=== PATIENT | male | born 1955 | race Caucasian/White ===

== ENCOUNTER → 2017-08-22 | Day surgery (SDC) | payer OTHER ==
[2017-08-20 10:07] VITALS: BMI 26.6
--- NOTE | 2017-08-21 13:12 | HP ---
HISTORY AND PHYSICAL Surgery is scheduled for 08/22/2017. Braxton Montana is a 62-year-old patient seen with progressive right shoulder pain. We discussed treatment options. He elected to proceed with arthroscopy. Consent was obtained. PAST MEDICAL HISTORY: His past medical history is hyperlipidemia, hypertension, gastroesophageal reflux disease. PAST SURGICAL HISTORY: Tonsillectomy. DAILY MEDICATIONS: 1. Atorvastatin. 2. Cardizem. 3. [place]. 4. Prilosec. ALLERGIES: PENICILLIN. SOCIAL HISTORY: Patient currently smokes 1 pack of cigarettes daily. PHYSICAL EXAMINATION: Physical evaluation right shoulder: Flexion 90 degrees, abduction is 30 degrees. External rotation is 10 degrees with pain and weakness. Tenderness along the anterolateral acromion and rotator cuff insertion site. Impingement positive at 70 degrees. Drop-arm sign is positive. Distal neurovascular exam is intact. Radiographs of the right shoulder revealed a type 2 anterior acromion acromioclavicular joint osteoarthritis and cystic changes of the greater tuberosity. A right shoulder MRI revealed a retracted rotator cuff tendon tear. IMPRESSION: 1. Right shoulder impingement with rotator cuff tear. 2. Hypertension. 3. Hyperlipidemia. 4. Tobacco use. PLAN: Right shoulder arthroscopy, subacromial decompression, probable arthroscopic rotator cuff repair, possible Domenica procedure and debridement. MMODL / IJN: [id number] /
[~2017-08-22] MED LIST: DEXAMETHASONE SOD PHOSPHATE 10 MG/ML 1 ML VIAL IV ONE; GLYCOPYRROLATE 0.2 MG/ML 2 ML VIAL ONE; LACTATED RINGERS 1,000 ML IV ONE; LACTATED RINGERS 1,000 ML IV SCH; LIDOCAINE 1% 20 ML VIAL (10MG/ML) FOR IV START INTRADERMA PRN; LIDOCAINE 1% INJ 10MG/ML (20 ML MDV) ONE; LIDOCAINE 2%-EPI 1:100,000 20 ML VIAL ONE; MIDAZOLAM 2 MG/2 ML VIAL IV PRN; MIDAZOLAM 2 MG/2 ML VIAL ONE; NEOSTIGMINE 1 MG/ML 10 ML VIAL ONE; ONDANSETRON ODT 4 MG TAB PO ONE; PROPOFOL 10 MG/ML 20 ML VIAL IV ONE; ROCURONIUM BROMIDE 10 MG/ML 10 ML VIAL IV ONE; ROPIVACAINE 5 MG/ML 30 ML VIAL ONE; SCOPOLAMINE 1.5MG/72HR PATCH TRANSDERM ONE; SUCCINYLCHOLINE CHLORIDE 100 MG/5 ML SYR IV ONE; ceFAZolin IN SWFI 2 GM/20 ML SYRINGE IVP ONE; fentaNYL (PF) 50 MCG/ML 2 ML AMP IV PRN; fentaNYL (PF) 50 MCG/ML 2 ML AMP ONE
--- NOTE | 2017-08-22 09:24 | P.OP ---
Date of Procedure: 08/22/17 Preoperative Diagnosis: Right shoulder impingement Postoperative Diagnosis: 1. Right shoulder rotator cuff tear 2. Right shoulder impingement 3. Right shoulder acromioclavicular joint osteoarthritis 4. Right shoulder partial long head biceps tendon tear 5. Right shoulder labral tear 6. 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 Right shoulder arthroscopic rotator cuff repair 2. Right shoulder arthroscopic subacromial decompression 3. Right shoulder arthroscopic Domenica procedure 4. Right shoulder arthroscopic biceps tenotomy 5. Right shoulder arthroscopic debridement labral tear 6. Right shoulder arthroscopic chondroplasty glenoid Implants: 4-4.5 peek anchors Anesthesia: GETA, regional (Interscalene block) Surgeon: Jamshid Marcial Manager Corporate Responsibility #1: Vivek Zhu Estimated Blood Loss (ml): 12 Pathology: none sent Condition: stable Disposition: PACU Indications for Procedure: 62-year-old patient seen with progressive right shoulder pain. After treatment options were discussed, he elected to proceed with arthroscopy. Operative Findings: see description of procedure Description of Procedure: Patient underwent a shoulder block by department of anesthesia. The patient was then taken to the operative suite. The patient underwent a general anesthetic by the department of anesthesia. The patient was placed into a lateral position and secured. There was appropriate padding of the bony prominence. Right shoulder was then prepped and draped in normal sterile orthopedic fashion. We placed the extremity in 10 pounds of longitudinal traction. A posterior incision was now made for a posterior working portal site. The trocar and cannula were inserted into the glenohumeral joint. Arthroscopy was initiated. Spinal needle was now inserted anteriorly, to ascertain the anterior working portal site. An incision was now made in that area, a trocar was inserted followed by a probe. There was superficial tearing of the anterior and superior labrum. Partial tearing long head biceps tendon. An area of grade 3/4 chondromalacia along the inferior aspect of the glenoid with some osteochondral tears present. There were diffuse grade 1/2 chondromalacia changes about the humeral head with no osteochondral tears. I performed an arthroscopic biceps tenotomy. I debrided those labral tears down to stable tissue. I performed a chondroplasty of the glenoid any down to stable peripheral osteochondral tissue. The residual osteochondral tissue was found to be stable. Instruments now removed from glenohumeral joint. Utilizing the posterior working portal site, the trocar and cannula were inserted into the subacromial space. Arthroscopy initiated. I made an incision 2 fingerbreadths lateral to the acromion. I introduced my trocar followed by my ArthroCare ablator. I now began ablating thick subacromial bursal tissue, which exposed the undersurface of the anterior acromion. This was diminished subacromial space. There was a very prominent anterior acromion. A motorized bur was introduced and a subacromial decompression was performed. I also excised some osteophytes off the inferior aspect of the distal clavicle. The AC joint was visualized and noted to be fairly arthritic. Our motorized bur was introduced in the anterior portal site and a Domenica procedure was performed without difficulty, decompressing the AC joint nicely. I turned my attention to the rotator cuff. There was a 2.5 cm tear along the distal supraspinatus with retraction approximately measuring 2 cm. I did a release and could pull the tendon over the footprint. I debrided the margins on a stable tissue. I abraded the footprint with a motorized bur. I created an shellfish processing laborer portal site off the lateral acromion. I introduced 2 medial anchors with 2 sutures each. I passed all 8 limbs of suture through good bites of rotator cuff tendon. I noted an area posteriorly were all was concerned with the dogear and passed a suture loop through that. I now crisscrossed all sutures pulling the tendon over the footprint and introduced 2 lateral anchors was compressed the tendon along the footprint very nicely. All residual suture limbs were clipped. The repair. Was found to be stable with good compression of the tendon along the footprint. I injected 1 mL of Renue intra-articular. Instruments now removed from the portal sites. All portal sites were approximated with nylon suture. Sterile dressings were applied followed by a slingshot immobilizer. Nicolas RONQUILLO assisted with the procedure. The patient was awakened, transferred to a bed, and taken to recovery in stable condition.
--- NOTE | 2017-08-22 09:24 | P.ONQ ---
Anesthesiology Proc Note - PNB - Peripheral Nerve Block Performed Right Interscalene Indication: Acute Post-Operative Pain, Requested by physician (Dr Marcial) Sedation Type: Sedate with meaningful contact maintained Preparation: Sterile Prep Position: Supine Catheter: None Needle Types: Other (see comment) (Raghavendra) Needle Size: 50mm (2") Needle Gauge: 21 (Ropivacaine 0.5% 13cc, Lidocaine 13cc ,1:100,000 epi ) Blood Aspirated: No Pain Paresthesia on Injection Noted: No Resistance on Injection: Normal Events: Uneventful and Well Tolerated
[2017-08-22 09:27] VITALS: TEMP 97
[2017-08-22 10:42] VITALS: BP 136/65; PULSE 65; RESP 15
== END | disposition home or self-care (01) ==
LOC: OR 05:31
PROVIDERS: ATTEND Orthopaedic Surgery
DX: M75.101 Unspecified rotator cuff tear or rupture of right shoulder, not specified as traumatic (principal); M25.811 Other specified joint disorders, right shoulder; M19.011 Primary osteoarthritis, right shoulder; S43.51XA Sprain of right acromioclavicular joint, initial encounter; M25.711 Osteophyte, right shoulder; X58.XXXA Exposure to other specified factors, initial encounter; M94.211 Chondromalacia, right shoulder; Z88.0 Allergy status to penicillin; I10 Essential (primary) hypertension; E78.5 Hyperlipidemia, unspecified; F17.210 Nicotine dependence, cigarettes, uncomplicated; R73.03 Prediabetes; Z86.73 Personal history of transient ischemic attack (TIA), and cerebral infarction without residual deficits; I25.10 Atherosclerotic heart disease of native coronary artery without angina pectoris; I25.2 Old myocardial infarction; I73.9 Peripheral vascular disease, unspecified; Z79.899 Other long term (current) drug therapy
CPT/HCPCS: 29826; 29827; 29824; 64415; C1894; C1713; C1765; J2250; J1100; J2710; J2001; J3010; J2795; J0330; J2704; J0690

== ENCOUNTER → 2018-02-05 | Outpatient (CLI) | payer OTHER ==
--- NOTE | 2018-02-05 13:50 | US ---
EXAMINATION TYPE: US carotid duplex BILAT DATE OF EXAM: 02/05/2018 COMPARISON: NONE CLINICAL HISTORY: Headaches R51. EXAM MEASUREMENTS: RIGHT: Peak Systolic Velocity (PSV) cm/sec ----- Right CCA: 85.1 ----- Right ICA: 146 ----- Right ECA: 127 ICA/CCA ratio: 1.7 RIGHT: End Diastole cm/sec ----- Right CCA: 28.0 ----- Right ICA: 25.9 ----- Right ECA: 32.3 LEFT: Peak Systolic Velocity (PSV) cm/sec ----- Left CCA: 83.2 ----- Left ICA: 122 ----- Left ECA: 75.2 ICA/CCA ratio: 1.6 LEFT: End Diastole cm/sec ----- Left CCA: 21.1 ----- Left ICA: 33.5 ----- Left ECA: 16.2 VERTEBRALS (direction of flow): Right Vertebral: Antegrade Left Vertebral: Antegrade Rhythm: Normal IMPRESSION: Minimally elevated peak systolic velocity within the retrocardiac artery and values appr oaching abnormal within the left internal carotid artery are seen although there are no abnormal inte rnal carotid artery to common carotid artery ratios and therefore no sonographic evidence of hemodyna mically significant stenosis. Criteria for Assigning % of Stenosis / Diameter reduction (Estimation based on the indirect measurements of the internal carotid artery velocities (ICA PSV). 1. Normal (no stenosis)=ICA PSV < 125 cm/s: ratio < 2.0: ICA EDV<40 cm/s. 2. Less than 50% stenosis=ICA PSV < 125 cm/s: ratio < 2.0: ICA EDV<40 cm/s. 3. 50 to 69% stenosis=ICA PSV of 125 to 230 cm/s: ration 2.0 ? 4.0: ICA EDV 40-100 cm/s. 4. Greater than 70% stenosis to near occlusion= ICA PSV > 230 cm/s: ratio > 4.0: ICA EDV > 100 cm/s. 5. Near occlusion= ICA PSV velocities may be low or undetectable: variable ratio and ICA EDV. 6. Total occlusion=unable to detect flow.
== END | disposition home or self-care (01) ==
LOC: RADUSWWP 12:43
DX: R94.8 Abnormal results of function studies of other organs and systems (principal)
CPT/HCPCS: 93880

== ENCOUNTER → 2018-02-09 | Outpatient (CLI) | payer OTHER ==
--- NOTE | 2018-02-09 10:21 | MR ---
EXAMINATION TYPE: MR brain wo con, MR angio head wo con DATE OF EXAM: 02/09/2018 9:24 AM COMPARISON: NONE HISTORY: Chronic intractable cluster headaches FINDINGS: The ventricles, basal cisterns and sulci overlying the cerebral convexities are minimally enlarged. There is evidence of mild periventricular white matter ischemic demyelination. Remote deep white matter insults are also noted. No acute edema is seen on diffusion weighted imaging. There is no evidence for midline shift or mass effect. Acute intracranial hemorrhage or extra-axial collection is not evident. The mastoid air cells are well-aerated. Mild chronic ethmoidal sinusitis. IMPRESSION: Age-related atrophic and chronic small vessel ischemic change. No acute intracranial process at this time. EXAMINATION TYPE: MR brain wo con, MR angio head wo con DATE OF EXAM: 02/09/2018 9:24 AM COMPARISON: NONE HISTORY: Chronic intractable cluster headaches Three-dimensional [id number] intracranial MRA was performed with multiple intensity projection im ages submitted and source data reviewed at the workstation. The vertebrobasilar system as well as intracranial portions of the internal carotid arteries and thei r major tributaries are patent. I do not see evidence for sizable aneurysm or vascular malformation. IMPRESSION: Normal study.
== END | disposition home or self-care (01) ==
LOC: RADMRIMAIN 08:40
PROVIDERS: ATTEND Psychiatry & Neurology Neurology
DX: G44.021 Chronic cluster headache, intractable (principal)
CPT/HCPCS: 70544; 70551

== ENCOUNTER → 2022-11-24 | Outpatient (CLI) | payer OTHER ==
[2022-11-24 15:54] LABS: Basophils # (A) 0.05 X 10*3/uL (0.00-0.10); Basophils % (A) 0.6 %; Eosinophils # (A) 0.17 X 10*3/uL (0.04-0.35); HCT 46.7 % (39.6-50.0); HGB 14.8 d/dL (13.0-17.0); Lymphocytes # (A) 2.85 X 10*3/uL (0.90-5.00); MCH 31.1 pg (27.0-32.0); MCHC 31.7 d/dL (32.0-37.0); MCV 98.1 FL (80.0-97.0); Mean Platelet Volume 10.1 FL (9.5-12.2); Monocytes # (A) 0.63 X 10*3/uL (0.20-1.00); Monocytes % (A) 7.5 %; NRBC Per 100 WBC 0 X 10*3/uL (0.00-0.01); Neutrophils # (A) 4.68 X 10*3/uL (1.80-7.70); Neutrophils % (A) 55.8 %; Platelet Count 205 X 10*3/uL (140-440); RBC 4.76 X 10*6/uL (4.40-5.60); RDW 13.4 % (11.5-14.5); WBC 8.39 X 10*3/uL (4.50-10.00)
[2022-11-24 16:06] LABS: BUN/Creat Ratio 11.27 Ratio (12.00-20.00); Blood Urea Nitrogen 12.4 mg/dL (9.0-27.0); Calcium 9.5 mg/dL (8.7-10.3); Carbon Dioxide 23.6 mmol/L (21.6-31.8); Chloride 106 mmol/L (96-109); Glucose 140 mg/dL (70-110); Potassium 4.3 mmol/L (3.5-5.5); Sodium 140 mmol/L (135-145)
[2022-11-24 16:40] LABS: INR 0.94 sec (0.93-1.11); Prothrombin Time 10.7 sec (9.9-11.9)
== END | disposition home or self-care (01) ==
LOC: LABWHC1 08:40
PROVIDERS: ATTEND Orthopaedic Surgery
DX: Z01.812 Encounter for preprocedural laboratory examination (principal); Z22.322 Carrier or suspected carrier of Methicillin resistant Staphylococcus aureus; M16.12 Unilateral primary osteoarthritis, left hip; I45.19 Other right bundle-branch block; I51.0 Cardiac septal defect, acquired; R94.31 Abnormal electrocardiogram [ECG] [EKG]
CPT/HCPCS: 36415; 80048; 85025; 85610; 87070; 93005

== ENCOUNTER → 2022-11-27 | Outpatient (CLI) | payer OTHER | END | disposition home or self-care (01) | LOC: LABPAT 12:09 | PROVIDERS: ATTEND Orthopaedic Surgery | DX: Z01.812 Encounter for preprocedural laboratory examination (principal); M16.12 Unilateral primary osteoarthritis, left hip; Z22.322 Carrier or suspected carrier of Methicillin resistant Staphylococcus aureus ==

== ENCOUNTER 2022-12-04 12:24 | Observation (INO) | payer OTHER ==
--- NOTE | 2022-12-03 11:41 | HP ---
HISTORY AND PHYSICAL His surgery is scheduled for 12/04/2022. Braxton Montana is a 67-year-old gentleman seen with symptomatic left hip osteoarthritis. After treatment options were discussed with him, he elected to proceed with direct anterior left total hip arthroplasty. Consent regarding the procedure was obtained. Medical clearance was provided by NATALIIA Olivera. PAST MEDICAL HISTORY: Hypertension, hyperlipidemia, gastroesophageal reflux disease. SURGICAL HISTORY: Right shoulder arthroscopy, tonsillectomy. DAILY MEDICATIONS: Atorvastatin, Cardizem, [place], Prilosec. ALLERGIES: Penicillin. SOCIAL HISTORY: He smokes cigarettes. PHYSICAL EVALUATION OF THE LEFT HIP: He has diffuse tenderness about the hip girdle, limited range of motion with severe pain. Positive hip impingement sign. Straight-leg raise negative. Distal neurovascular exam intact. IMAGING: Radiographs of the left hip reveal severe osteoarthritic changes. IMPRESSION: 1. Left hip osteoarthritis. 2. Hyperlipidemia. 3. Gastroesophageal reflux disease. PLAN: Direct anterior left total hip arthroplasty. MMODL / IJN: [id number] /
[~2022-12-04 12:24] MED LIST changes: +ACETAMINOPHEN TAB 500 MG TAB PO PRN; -DEXAMETHASONE SOD PHOSPHATE 10 MG/ML 1 ML VIAL IV ONE; -GLYCOPYRROLATE 0.2 MG/ML 2 ML VIAL ONE; +HYDROmorphone 0.5 MG/0.5 ML SYRINGE IVP PRN; -LACTATED RINGERS 1,000 ML IV ONE; -LACTATED RINGERS 1,000 ML IV SCH; +LIDOCAINE 1% (10MG/ML) FOR IV START INTRADERMA PRN; -LIDOCAINE 1% 20 ML VIAL (10MG/ML) FOR IV START INTRADERMA PRN; -LIDOCAINE 1% INJ 10MG/ML (20 ML MDV) ONE; -LIDOCAINE 2%-EPI 1:100,000 20 ML VIAL ONE; +MELOXICAM 7.5 MG TAB PO PRN; -MIDAZOLAM 2 MG/2 ML VIAL ONE; -NEOSTIGMINE 1 MG/ML 10 ML VIAL ONE; -ONDANSETRON ODT 4 MG TAB PO ONE; -PROPOFOL 10 MG/ML 20 ML VIAL IV ONE; -ROCURONIUM BROMIDE 10 MG/ML 10 ML VIAL IV ONE; -ROPIVACAINE 5 MG/ML 30 ML VIAL ONE; -SCOPOLAMINE 1.5MG/72HR PATCH TRANSDERM ONE; -SUCCINYLCHOLINE CHLORIDE 100 MG/5 ML SYR IV ONE; +TRANEXAMIC 1,000 MG/100ML-NACL 1,000 MG in SALINE 1 100ML.BAG IVPB PRN; -ceFAZolin IN SWFI 2 GM/20 ML SYRINGE IVP ONE; -fentaNYL (PF) 50 MCG/ML 2 ML AMP IV PRN; -fentaNYL (PF) 50 MCG/ML 2 ML AMP ONE
[2022-12-04] MEDS: LACTATED RINGERS 1,000 ML IV SCH (13:39)
[2022-12-04] MEDS: DEXAMETHASONE SOD PHOSPHATE 4 MG/ML 1 ML VIAL IV ONE ×2 (13:39→23:56)
[2022-12-04] MEDS: ONDANSETRON 4 MG/2 ML VIAL IVP ONE ×2 (13:39→23:57)
[2022-12-04] MEDS ORDERED: MIDAZOLAM 2 MG/2 ML VIAL IVP ONE (13:48)
--- NOTE | 2022-12-04 14:13 | P.ANPRN ---
Procedure Note - Anesthesia - Nerve Block Performed Left [place] Time Out Performed: Yes (13:47) Date of Procedure: 12/04/22 Procedure Start Time: :47 Procedure Stop Time: :52 Location of Patient: PreOp Indication: Acute Post-Operative Pain, Requested by Surgeon (Dr Marcial) Sedation Type: Sedate with meaningful contact maintained Preparation: Sterile Prep Position: Supine Catheter: None Needle Types: Pajunk Needle Gauge: 21 Ultrasound used to visualize needle placement: Yes Ultrasound used to observe medication spread: Yes Injectate: 0.5% Ropivacaine (see comment for volume) (20cc +5cc PF Normal saline) Blood Aspirated: No Pain Paresthesia on Injection Noted: No Resistance on Injection: Normal Image Stored and Saved: Yes Events: Uneventful and Well Tolerated
[2022-12-04] MEDS ORDERED: KETAMINE 10 MG/ML 20 ML VIAL ONE (14:59)
[2022-12-04] MEDS ORDERED: ROPIVACAINE 5 MG/ML 30 ML VIAL ONE (14:59)
[2022-12-04] MEDS ORDERED: TRANEXAMIC 1,000 MG/100ML-NACL PREMIX BAG ONE (14:59)
[2022-12-04] MEDS ORDERED: PROPOFOL 10 MG/ML 20 ML VIAL IV ONE (14:59)
[2022-12-04] MEDS ORDERED: ePHEDrine 50 MG/ML 1 ML VIAL ONE (14:59)
[2022-12-04] MEDS ORDERED: SODIUM CHLORIDE 0.9% (PF) 10 ML VIAL ONE (14:59)
[2022-12-04] MEDS ORDERED: MIDAZOLAM 2 MG/2 ML VIAL ONE (14:59)
[2022-12-04] MEDS ORDERED: HYDROcodone/APAP 5-325MG 1 EACH TAB PO PRN (16:16)
[2022-12-04] MEDS ORDERED: ONDANSETRON 4 MG/2 ML VIAL IVP PRN (16:16)
[2022-12-04] MEDS ORDERED: NALOXONE 0.4 MG/ML 1 ML VIAL IV PRN (16:16)
[2022-12-04] MEDS ORDERED: HYDROmorphone 0.5 MG/0.5 ML SYRINGE IVP PRN ×2 (16:16)
--- NOTE | 2022-12-04 16:16 | P.OP ---
Date of Procedure: 12/04/22 Preoperative Diagnosis: Left hip osteoarthritis Postoperative Diagnosis: Left hip osteoarthritis Procedure(s) Performed: Direct anterior approach left total hip arthroplasty Implants: 1. Depuy Corail KLA size 11 high offset collared press-fit femoral stem 2. Depuy pinnacle 54 mm press-fit acetabular shell 3. Depuy pinnacle neutral polyethylene acetabular liner 36 mm ID 54 mm OD 4. Biolox delta ceramic femoral head +1.5 36 mm Anesthesia: regional (erector spinae block), spinal Surgeon: Jamshid Marcial Audiometrist #1: Vivek Zhu Estimated Blood Loss (ml): 85 Pathology: none sent Condition: stable Disposition: PACU Indications for Procedure: 67-year-old patient seen with progressive symptomatic left hip osteoarthritis. After treatment options were discussed, he elected to proceed with direct anterior left total hip arthroplasty. Operative Findings: See description of procedure Description of Procedure: The patient was taken to the operative suite. Patient underwent a spinal anesthetic by the department of anesthesia. Patient was then transferred to the [place] table. Patient was given preoperative IV antibiotics and TXA. Both lower extremities were placed in standard leg spars. The hip was then prepped and draped in the normal sterile orthopedic fashion. A standard anterior incision was made beginning 3 cm lateral and 1 cm distal to the ASIS extending 10 cm. Dissection was then carried down through the subcutaneous soft tissues down to the fascia overlying the tensor fascia alonzo. An incision was now made through the fascia. Careful dissection was taken down exposing the tensor fascia alonzo muscle. A Cobra retractor was now placed along the medial femoral neck and a second one along the lateral femoral neck. The venous circumflex vessels were now identified, cauterized and clipped. We identified the anterior hip capsule. An incision was made through the hip capsule along the lateral border. I performed a partial anterior capsulectomy. Retractors were now placed around the femoral neck itself. A femoral neck cut was now made with a sagittal saw. It was completed with an osteotome at the lateral neck area. The femoral head was now removed without difficulty. The extremity was now rotated to 60 of external rotation. It was locked in position. Residual labrum was now debrided out. Serial reaming was performed of the acetabulum while Nicolas RONQUILLO assisted holding an anterior retractor for exposure. Once we reached the appropriate size and a trial was position and fit nicely. The appropriate size was now chosen opened and made available. It was introduced into the acetabulum without difficulty. The C-arm/fluoroscopy was now brought into the operative field. We made sure we had a true AP pelvic view. We now under direct C- arm/fluoroscopy introduced into the acetabular component with appropriate version and inclination. I held the cup in appropriate position well Nicolas RONQUILLO used a mallet to seat the acetabular component. I noted the component now to be well seated and stable. Acetabular cup introduce her was removed. The C-arm was pulled back. An appropriate liner was introduced and clicked into position. It was felt to be stable. At this point retractors were removed. The extremity was now placed into 140 external rotation with no traction. The leg was now dropped to the ground and adducted. Appropriate retractors were now positioned along the proximal femur. We also placed our femoral look into position. Additional capsular releasing was performed to gain access to the proximal femur. We now used a box osteotome. A canal finder was now utilized. Serial broaching was now performed with the assistance of Nicolas RONQUILLO tapping the broaches down with a mallet while held the broach in appropriate rotation and position. This was done until we reached the appropriate size with good overall rotational stability. Appropriate calcar planing was performed. A tr ial head/neck was placed into position. The hip was now reduced. The C- arm/fluoroscopy was brought back into the operative field. I the trial components appeared adequately sized and positioned The C-arm/fluoroscopy was pulled back. Retractors were repositioned and the hip was dislocated. The leg was again taken down to the ground and adducted. Appropriate retractors were repositioned as well as the femoral hook. All trial components were removed. The femoral implant was opened along with the femoral head. The femoral implant was introduced on the appropriate handle into our pre-broached area. I held the component position well Nicolas RONQUILLO used a mallet to seat the femoral component. The femoral component was now noted to be well seated and stable.. The femoral head was introduced with good positioning and fixation noted. Retractors were now removed. The hip was now reduced. There appeared be good positioning of the hip confirmed on intraoperative fluoroscopy. Spot films were obtained to document this. A second gram of TXA was given. The deep and superficial soft tissues were infiltrated with local analgesic. Bipolar cautery had been utilized intermittently through the procedure for hemostasis. The wound was irrigated copiously with pulse lavage mechanical irrigation. The fascia was repaired with Vicryl suture. The subcutaneous soft tissues were repaired in layers with Vicryl suture. The skin was approximated with pernio/Dermabond. Sterile dressings were applied. Patient was then awakened, transferred to a bed and taken to recovery in stable condition. Nicolas RONQUILLO assisted with the complex procedure.
[2022-12-04] MEDS ORDERED: LACTATED RINGERS 1,000 ML IV ONE (16:18)
--- NOTE | 2022-12-04 17:35 | FL ---
Intraoperative/procedural fluoroscopic services were provided. Total fluoroscopy time is 10.6 seconds with a total of 3 submitted images to PACS. Please see the operative/procedural note for further det ails. DAP: 0.6792 Gycm2
[2022-12-04] MEDS ORDERED: SENNOSIDES-DOCUSATE SODIUM 1 EACH TAB PO SCH (21:00)
[2022-12-04] MEDS: HYDROmorphone 1 MG/ML 1 ML SYRINGE IVP PRN (22:32)
[2022-12-05] MEDS: HYDROcodone/APAP 7.5-325MG 1 EACH TAB PO PRN ×2 (00:09→06:35)
[2022-12-05] MEDS: LACTATED RINGERS 1,000 ML IV SCH ×3 (00:11→07:35)
[2022-12-05] MEDS ORDERED: HYDROcodone/APAP 10-325MG 1 EACH TAB PO PRN (01:26)
--- NOTE | 2022-12-05 02:03 | P.CONS ---
History of Present Illness - Reason for Consult Consult date: 12/04/22 perioperative medical management - Chief Complaint LHR - History of Present Illness 67 year old male with hypertension and hyperlipidemia coming in for scheduled LHR , tolerated procedure well , no observed immediate post op complications, he did not walk yet, tolerated PO intake , denies any chest pain any fever, chills, cough, sore throat, trouble breathing , nausea , vomiting, abd pain , . he was able to pass urine with no issues. post op pain well controlled denies tobacco smoking illicit drugs or heavy alcohol review of systems Pertinent positives as noted in HPI. All other systems were reviewed and are negative on exam Constitutional: No acute distress, conversant, pleasant Eyes: Anicteric sclerae, moist conjunctiva, Pupils equal round reactive to light ENMT: NC/AT Oropharynx clear, no erythema, or exudates Neck: Supple, no masses, or JVD No carotid bruits No thyromegaly Lungs: Clear to auscultation Clear to percussion Normal respiratory effort, no accessory muscle use Cardiovascular: Heart regular in rate and rhythm, systolic murmurs, no gallops, or rubs No peripheral edema Abdominal: Soft Nontender, no guarding, rebound or rigidity Abdomen moving with respiration Normoactive bowel sounds No hepatomegaly, No splenomegaly No palpable mass No abdominal wall hernia noted Skin: Normal temperature, tone, texture, turgor No induration No subcutaneous nodules No rash, lesions No ulcers Extremities: No digital cyanosis No clubbing Pedal pulses intact and symmetrical Radial pulses intact and symmetrical No calf tenderness Psychiatric: Alert and oriented to person, place and time Appropriate affect fair judgement Neuro Muscles Strength 5/5 in all 4 extremities Sensation to light touch grossly present throughout Cranial nerves II-XII grossly intact Lymphatics: no palpable cervical or supraclavicular lymph nodes Past Medical History Past Medical History: CVA/TIA, GERD/Reflux, Hearing Disorder / Deafness, Hyperlipidemia, Myocardial Infarction (IA), Osteoarthritis (OA), Pneumonia Additional Past Medical History / Comment(s): Hard of hearing. pt takes dilitiazem for cluster headaches. TIA X2 Last Myocardial Infarction Date:: early History of Any Multi-Drug Resistant Organisms: None Reported Past Surgical History: Heart Catheterization With Stent, Tonsillectomy Additional Past Surgical History / Comment(s): Surgery for deviated septum, "had artery on right side of neck cleaned out" Past Anesthesia/Blood Transfusion Reactions: No Reported Reaction Date of Last Stent Placement:: EARLY Past Psychological History: No Psychological Hx Reported Smoking Status: Current every day smoker Past Alcohol Use History: None Reported Additional Past Alcohol Use History / Comment(s): OVER 45 YRS-1 PPD. Past Drug Use History: None Reported - Past Family History Father Family Medical History: Cancer Additional Family Medical History / Comment(s): "HEART ISSUES" Brother(s) Family Medical History: Cancer Medications and Allergies Home Medications Medication Instructions Recorded Confirmed Type Atorvastatin [Lipitor] 40 mg PO HS 08/20/17 12/04/22 History Cyclobenzaprine [Flexeril] 10 mg PO TID 08/20/17 12/04/22 History HYDROcodone/APAP 10-325MG [[place] 1 tab PO Q6H PRN 08/20/17 12/04/22 History 10-325] Omeprazole 40 mg PO QAM 08/20/17 12/04/22 History Topiramate [Trokendi Xr] 25 mg PO BID 08/20/17 12/04/22 History dilTIAZem HCL [Diltiazem HCl] 30 mg PO BID 08/20/17 12/04/22 History Allergies Allergy/AdvReac Type Severity Reaction Status Date / Time Penicillins Allergy Rash/Hives Verified 12/04/22 13:08 Physical Exam Vitals: Vital Signs Temp Pulse Resp BP Pulse Ox 12/04/22 20:07 97.4 F L 71 19 132/69 96 12/04/22 19:01 61 16 167/70 99 12/04/22 18:00 50 L 16 144/68 100 12/04/22 17:45 53 L 16 133/62 99 12/04/22 17:30 65 16 138/59 100 12/04/22 17:15 52 L 16 130/61 100 12/04/22 17:00 53 L 16 132/60 99 12/04/22 16:45 57 L 16 113/56 99 12/04/22 16:33 96.9 F L 69 16 107/55 92 L 12/04/22 13:57 56 L 16 127/60 99 12/04/22 13:15 96.5 F L 64 20 164/72 99 Intake and Output 12/04/22 12/04/22 12/05/22 14:59 22:59 06:59 Intake Total 300 800 Output Total 85 Balance 300 715 Intake: IV 300 800 Output: Estimated Blood Loss 85 Other: Weight 71.8 kg Assessment and Plan Assessment: LHR POD zero pain control DVT PPX on lovenox sc daily follow up and management per ortho team hypertension , resume cardizem hyperlipidemia , resume atorvastatin check AM labs CBC and BMP stable from medical stand point thank you for this consultation
[2022-12-05] MEDS: HYDROmorphone 1 MG/ML 1 ML SYRINGE IVP PRN (03:56)
[2022-12-05] MEDS ORDERED: PANTOPRAZOLE 40 MG TABLET PO SCH (07:30)
[2022-12-05 08:18] VITALS: BP 113/65; PULSE 72; RESP 17; TEMP 98.5
[2022-12-05] MEDS ORDERED: TOPIRAMATE 25 MG TAB PO SCH (09:00)
[2022-12-05] MEDS ORDERED: DILTIAZEM ORAL 30 MG TAB PO SCH (09:00)
[2022-12-05] MEDS ORDERED: FAMOTIDINE 20 MG TAB PO SCH (09:00)
[2022-12-05] MEDS ORDERED: ENOXAPARIN 40 MG/0.4 ML SYRINGE SQ SCH (09:00)
[2022-12-05 10:56] LABS: Basophils # (A) 0.03 X 10*3/uL (0.00-0.10); Basophils % (A) 0.2 %; Eosinophils # (A) 0.01 X 10*3/uL (0.04-0.35); Eosinophils % (A) 0.1 %; HCT 36.2 % (39.6-50.0); HGB 11.9 d/dL (13.0-17.0); Lymphocytes # (A) 1.98 X 10*3/uL (0.90-5.00); Lymphocytes % (A) 14.4 %; MCH 31.8 pg (27.0-32.0); MCHC 32.9 d/dL (32.0-37.0); MCV 96.8 FL (80.0-97.0); Mean Platelet Volume 10.5 FL (9.5-12.2); Monocytes % (A) 7.3 %; NRBC Per 100 WBC 0 X 10*3/uL (0.00-0.01); Neutrophils # (A) 10.67 X 10*3/uL (1.80-7.70); Neutrophils % (A) 77.5 %; Platelet Count 173 X 10*3/uL (140-440); RBC 3.74 X 10*6/uL (4.40-5.60); RDW 13.3 % (11.5-14.5); WBC 13.76 X 10*3/uL (4.50-10.00)
--- NOTE | 2022-12-05 10:59 | P.PN ---
Subjective Progress Note Date: 12/05/22 Principal diagnosis: status post direct anterior left total hip arthroplasty patient evaluated today at bedside, he is resting in his hospital bed. He has been up ambulating with no difficulty. He did pass physical therapy tests today. He is urinating with no difficulties, he is passing gas. Pain is well- controlled at this time. He denies headaches, lightheadedness, chest pain or shortness of breath. Objective - Vital Signs Vital signs: Vital Signs Temp 98.5 F 12/05/22 07:12 Pulse 72 12/05/22 07:12 Resp 17 12/05/22 07:12 BP 113/65 12/05/22 07:12 Pulse Ox 96 12/05/22 07:12 FiO2 Intake & Output 12/04/22 12/05/22 12/05/22 18:59 06:59 18:59 Intake Total 1100 Output Total 85 Balance 1015 Weight 71.8 kg 71.8 kg Intake: IV 1100 Output: Estimated Blood Loss 85 Other: Voiding Method Toilet # Voids 3 - Exam Left lower extremity: Incision is clean, dry, and intact. The foam dressing is in good condition. There is minimal soft tissue swelling and ecchymosis surrounding the medial and lateral aspects of the incision. Calf is soft, no tenderness with palpation. Plantar flexion, dorsiflexion, EHL, FHL are intact. Sensory exam to light touch throughout the extremity is intact, dorsal pedis pulses 2+. Assessment and Plan Assessment: Postoperative day #1 status post direct anterior left total hip arthroplasty Plan: pain control, patient does state [place] 10 mg/325 mg and Flexeril, he'll resume those of discharge DVT prophylaxis, aspirin 81 mg twice a day for 30 days Wound care instructions were discussed, this concluded bandage removal and showering instructions Physical therapy/nursing, weight-bear as tolerated with walker Medical recommendations encouraged Discharge planning: Patient stable for discharge home today Time with Patient: Less than 30
--- NOTE | 2022-12-05 11:03 | P.DS ---
Providers Date of admission: 12/04/22 16:27 Expected date of discharge: 12/05/22 Attending physician: Jamshid Marcial Consults: 12/04/22 16:16 Consult Physician Routine Consulting Provider: Leopoldo Abdalla Consult Reason/Comments: Medical management Do you want consulting provider notified?: Yes Primary care physician: [facility] Hospital Course: Date of admission: 12/04/2022 Date of discharge: 12/05/2022 Admission diagnosis: status post direct anterior left total hip arthroplasty Discharge diagnosis: same Attending physician: Dr. Marcial Surgical procedures: direct anterior left total hip arthroplasty Brief history: Patient is a 67-year-old male with a history of progressive primary left hip osteoarthritis. At this point patient has failed conservative treatment measures and has opted to proceed with a elective direct anterior left total hip arthroplasty. Hospital course: Details of patient's surgery can be found in operative report. Patient tolerated the procedure well and was subsequently transported to orthopedic floor. Patient's orthopeidc and medical care was provided daily. Patient had daily laboratory tests performed for evaluation of overall blood counts . Patient had daily physical therapy to include strengthening range of motion as well as education with walker ambulation. Patient was treated with Lovenox for their postoperative DVT prophylaxis during their inpatient stay. Patient was noted to have a relatively uneventful postoperative course. Patient reported satisfactory pain control with oral pain medications by postoperative day 0. Patient showed satisfactory progress with physical therapy. Patient moved steadily through the program and had no difficulty meeting the goals by postoperative day 1. Given patient's otherwise satisfactory course and having met physical therapy goals, plan is to discharge patient home on postoperative day 1. Discharge condition/disposition: Patient will be discharged home in stable condition. Discharge medications: Instructions are given on resumption of patient's normal daily medications per primary care recommendation, in addition patient will be prescribed aspirin 81 mg. Discharge instructions: 1. Wound care and infection precautions, keep incision dry and covered while showering, no lotions, creams, moisturizers. No soaking, tubs, pools, hottubs. Do not scrub over the incision. 2. Weight-bear as tolerated with walker / cane until follow-up. 3. Ice and elevate when necessary. Do not exceed 20 minutes per hour with ice pack. 4. Utilize compression sleeve until seen at first follow up appointment. 5. Visiting nursing care. 6. Home physical therapy 7. Pain meds and anticoagulants per prescription. 8. Pain medication has potential to cause constipation. Increase oral fluid and fiber intake. Contact primary care provider if you have not had a bowel movement within 48 hours after discharge 9. No anti-inflammatory medication until discussed at first post operative visit, this including Motrin, Aleve, Mobic, Diclofenac 10. Follow up in office at 2 weeks postop with Nicolas Zhu PA-C/Leandro Edwards 11. Follow up with your primary care doctor 7-10 days after discharge. 12. Contact [facility] with any questions, . Procedures: direct anterior left total hip arthroplasty Patient Condition at Discharge: Good Plan - Discharge Summary Discharge Rx Participant: No New Discharge Prescriptions: New Aspirin [Adult Low Dose Aspirin EC] 81 mg PO BID #60 tab No Action HYDROcodone/APAP 10-325MG [[place] 10-325] 1 tab PO Q6H PRN PRN Reason: Pain Cyclobenzaprine [Flexeril] 10 mg PO TID Atorvastatin [Lipitor] 40 mg PO HS Topiramate [Trokendi Xr] 25 mg PO BID Omeprazole 40 mg PO QAM dilTIAZem HCL [Diltiazem HCl] 30 mg PO BID Discharge Medication List Atorvastatin [Lipitor] 40 mg PO HS 08/20/17 [History] Cyclobenzaprine [Flexeril] 10 mg PO TID 08/20/17 [History] HYDROcodone/APAP 10-325MG [[place] 10-325] 1 tab PO Q6H PRN 08/20/17 [History] Omeprazole 40 mg PO QAM 08/20/17 [History] Topiramate [Trokendi Xr] 25 mg PO BID 08/20/17 [History] dilTIAZem HCL [Diltiazem HCl] 30 mg PO BID 08/20/17 [History] Aspirin [Adult Low Dose Aspirin EC] 81 mg PO BID #60 tab 12/05/22 [Rx] Follow up Appointment(s)/Referral(s): Vivek Zhu PAC [PHYSICIAN UTILITY TECHNICIAN] - 12/20/22 4:10 pm [facility] [place] [Primary Care Provider] - 1 Week Patient Instructions/Handouts: Anterior Hip Replacement (DC) Activity/Diet/Wound Care/Special Instructions: Orthopedic Discharge Instructions: 1. Wound care and infection precautions, keep incision dry and covered while showering, no lotions, creams, moisturizers. No soaking, pools, hot tubs. Do not scrub over incision. 2. Weight-bear as tolerated with walker / cane until follow-up. 3. Ice and elevate when necessary. Do not exceed 20 minutes per hour with ice pack. 4. Utilize compression sleeve until seen at first follow up appointment. 5. Pain meds and anticoagulants per prescription. 6. Pain medication has potential to cause constipation. Increase oral fluid and fiber intake. Contact primary care provider if you have not had a bowel movement within 48 hours after discharge. 7. No anti-inflammatory medication until discussed at first post operative visit, this including Motrin, Aleve, Mobic, Diclofenac. 8. Follow up in office at 2 weeks postop with Nicolas Zhu PA-C / Leandro Mchugh PA-C 9. Follow up with your primary care doctor 7-10 days after discharge. 10. Contact [facility] with any questions, . Keep incision clean, dry, intact. While showering, cover dressing with Saran wrap. Silver foam dressing may be removed on 12/11/2022. It is okay to shower directly over incision once dressing is removed Discharge Disposition: HOME WITH HOME HEALTH SERVICES
[2022-12-05 11:07] LABS: Calcium 8.9 mg/dL (8.7-10.3); Carbon Dioxide 21.2 mmol/L (21.6-31.8); Chloride 109 mmol/L (96-109); Glucose 154 mg/dL (70-110); Potassium 4.3 mmol/L (3.5-5.5); Sodium 139 mmol/L (135-145)
--- NOTE | 2022-12-05 11:28 | P.PN ---
Subjective Progress Note Date: 12/05/22 Hospital course: Patient is a Physical exam: Vital signs reviewed and stable. General: Nontoxic, no distress and appears stated age. Derm: Skin warm and dry, normal coloration for ethnicity. Head: Atraumatic, normocephalic and symmetric. Eyes: EOMs intact, no lid lag, and anicteric sclera Mouth: no lip lesions, mucus membranes moist Cardiovascular: regular rate and rhythm with normal S1S2, no murmur, positive posterior tibial pulses bilaterally, and cap refill < 2 seconds. Lungs: Respirations even, regular, and unlabored on room air. Lungs CTA bilaterally, no rhonchi, no rales, no wheezing, and no accessory muscle usage. Abdominal: soft, nontender to palpation, no guarding, no appreciable organomegaly Ext: ROM intact. No gross muscle atrophy, no edema, no contractures Neuro: Speech clear, face symmetrical and CN II-XII grossly intact with no noted focal neuro deficits Psych: Alert and oriented to person, place, time, and situation. Appropriate and pleasant affect. Assessment and Plan of Care: Postoperative morning labs reviewed. CBC showing acute blood loss anemia with hemoglobin stable at 11.9 (preoperative hemoglobin of 14.8) and mild leukocytosi s with WBC count of 13.76. BMP was unremarkable. Vital signs reviewed and stable. Temp 98.5F, Blood pressure 113/65, heart rate 72, respiratory rate 17, and SpO2 of 96% on room air. From a medical standpoint, patient is stable and cleared for discharge once discharge order is placed by primary admitting orthopedic surgery team. Thank you for allowing us to participate in the care of this pleasant patient. Do not hesitate to contact us with questions. Someone can be reached from the [facility] hospitalist group all hours of the day at [phone] or via perfect serve. Patient was seen independently by Nurse Pracitioner. This document was prepared using [employer] dictation software. Please allow for errors in psychology department chair, while rare they do occur. Objective - Vital Signs Vital signs: Vital Signs Temp 98.0 F 12/05/22 01:21 Pulse 89 12/05/22 01:21 Resp 19 12/05/22 01:21 BP 114/65 12/05/22 01:21 Pulse Ox 94 L 12/05/22 01:21 FiO2 Intake & Output 12/04/22 12/05/22 12/05/22 18:59 06:59 18:59 Intake Total 1100 Output Total 85 Balance 1015 Weight 71.8 kg 71.8 kg Intake: IV 1100 Output: Estimated Blood Loss 85 Other: Voiding Method Toilet # Voids 3 - Labs CBC & Chem 7: 12/05/22 06:35 12/05/22 06:35
[2022-12-05 12:15] VITALS: BMI 25.5
[2022-12-05] MEDS ORDERED: ATORVASTATIN 40 MG TAB PO SCH (21:00)
== END 2022-12-05 12:18 | disposition home health service (06) ==
LOC: OR 12:24 → 4SSUR 16:27 → OR 16:27 → 4SSUR 16:33
PROVIDERS: ADMIT Orthopaedic Surgery; ATTEND Orthopaedic Surgery
DX: M16.12 Unilateral primary osteoarthritis, left hip (principal); G89.18 Other acute postprocedural pain; I10 Essential (primary) hypertension; E78.5 Hyperlipidemia, unspecified; K21.9 Gastro-esophageal reflux disease without esophagitis; I25.2 Old myocardial infarction; F17.210 Nicotine dependence, cigarettes, uncomplicated; Z86.73 Personal history of transient ischemic attack (TIA), and cerebral infarction without residual deficits; Z95.5 Presence of coronary angioplasty implant and graft; Z79.899 Other long term (current) drug therapy; Z88.0 Allergy status to penicillin
CPT/HCPCS: 97161; 64447; 86900; 86901; 80048; 85025; 86850; 73501; 27130; G0378 ×2; C1776; J2250; J1100; J0690 ×2; J2405; J1650; J1170 ×3

== ENCOUNTER → 2023-03-13 | Outpatient (CLI) | payer OTHER | LOC: CPPFTMAIN 09:05 | DX: R05.3 Chronic cough (principal); F17.200 Nicotine dependence, unspecified, uncomplicated; Z88.0 Allergy status to penicillin | CPT/HCPCS: 94060; 94726; 94729 ==

== ENCOUNTER 2023-11-01 05:42 | Day surgery (SDC) | payer OTHER ==
--- NOTE | 2023-11-01 02:10 | HP ---
HISTORY AND PHYSICAL DATE OF SURGERY: 11/01/2023. HISTORY OF PRESENT ILLNESS: Braxton Montana is a 68-year-old patient, seen with progressive left shoulder pain. We discussed options regarding treatment. He elected to proceed with left shoulder arthroscopy. Consent was obtained. PAST MEDICAL HISTORY: Gastroesophageal reflux disease, hyperlipidemia, hypertension. PAST SURGICAL HISTORY: Right shoulder arthroscopy. DAILY MEDICATIONS: 1. Atorvastatin. 2. Diazepam. 3. [place]. 4. Prilosec. ALLERGIES: Penicillin. SOCIAL HISTORY: Smokes cigarettes. PHYSICAL EVALUATION OF THE LEFT SHOULDER: Flexion is 80 degrees. Abduction is 30 degrees. External rotation is 30 degrees. Tenderness along the anterolateral acromion and rotator cuff insertion. Impingement is positive at 70 degrees. Cross-body adduction sign is positive. Drop-arm sign is positive. Distal neurovascular exam is intact. IMAGING STUDIES: Left shoulder radiographs revealed a type 2 acromion, acromioclavicular joint osteoarthritis, and cystic changes of the tuberosity. MRI of left shoulder revealed rotator cuff tendon tear. IMPRESSION: 1. Left shoulder impingement with rotator cuff tear. 2. Left shoulder acromioclavicular joint osteoarthritis. PLAN: Left shoulder arthroscopy with subacromial decompression, rotator cuff repair, Domenica procedure and debridement. MMODL / IJN: [id number] /
[2023-11-01] MEDS ORDERED: HYDROmorphone 0.5 MG/0.5 ML SYRINGE IVP PRN (05:55)
[2023-11-01] MEDS ORDERED: ONDANSETRON 4 MG/2 ML VIAL IVP PRN (05:55)
[2023-11-01] MEDS ORDERED: LIDOCAINE 1% (10MG/ML) FOR IV START INTRADERMA PRN (05:55)
[2023-11-01] MEDS: LACTATED RINGERS 1,000 ML IV SCH (06:29)
[2023-11-01] MEDS: ONDANSETRON 4 MG/2 ML VIAL IVP ONE (06:32)
[2023-11-01] MEDS: DEXAMETHASONE SOD PHOSPHATE 4 MG/ML 1 ML VIAL IV ONE (06:32)
[2023-11-01] MEDS: fentaNYL (PF) 50 MCG/ML 2 ML AMP IVP ONE (07:07)
[2023-11-01] MEDS: MIDAZOLAM 2 MG/2 ML VIAL IVP ONE (07:07)
[2023-11-01] MEDS ORDERED: NEOSTIGMINE 1 MG/ML 10 ML VIAL ONE (07:24)
[2023-11-01] MEDS ORDERED: ROCURONIUM 10 MG/ML (5 ML VIAL) IV ONE (07:24)
[2023-11-01] MEDS ORDERED: SUCCINYLCHOLINE CHLORIDE 200 MG/10 ML VIAL IV ONE (07:24)
[2023-11-01] MEDS ORDERED: PROPOFOL 10 MG/ML 20 ML VIAL IV ONE (07:24)
[2023-11-01] MEDS ORDERED: ROPIVACAINE 5 MG/ML 30 ML VIAL ONE (07:24)
[2023-11-01] MEDS ORDERED: LIDOCAINE 1% INJ 10MG/ML (20 ML MDV) ONE (07:24)
[2023-11-01] MEDS ORDERED: fentaNYL (PF) 50 MCG/ML 2 ML AMP ONE (07:24)
[2023-11-01] MEDS ORDERED: GLYCOPYRROLATE 0.2 MG/ML 2 ML VIAL ONE (07:24)
--- NOTE | 2023-11-01 08:02 | P.ANPRN ---
Procedure Note - Anesthesia - Nerve Block Performed Left Interscalene Single Time Out Performed: Yes ([id number]) Date of Procedure: 11/01/23 Procedure Start Time: :08 Procedure Stop Time: 07:12 Location of Patient: PreOp Indication: Acute Post-Operative Pain Specifically requested for management of pain by DrTere: Jamshid Marcial Sedation Type: Sedate with meaningful contact maintained Preparation: Sterile Prep Position: Right Lateral Catheter: None Needle Types: Pajunk Needle Gauge: 21 Ultrasound used to visualize needle placement: Yes Ultrasound used to observe medication spread: Yes Injectate: 0.5% Ropivacaine (see comment for volume) (30) Blood Aspirated: No Pain Paresthesia on Injection Noted: No Resistance on Injection: Normal Image Stored and Saved: Yes Events: Uneventful and Well Tolerated
--- NOTE | 2023-11-01 09:30 | P.OP ---
Date of Procedure: 11/01/23 Preoperative Diagnosis: Left shoulder impingement Postoperative Diagnosis: 1. Left shoulder rotator cuff tear 2. Left shoulder impingement 3. Left shoulder bicipital tendinitis 4. Left shoulder acromioclavicular joint osteoarthritis 5. Left shoulder superficial labral tear Procedure(s) Performed: 1. Left shoulder arthroscopic rotator cuff repair 2. Left shoulder arthroscopic subacromial decompression 3. Left shoulder arthroscopic biceps tenodesis 4. Left shoulder arthroscopic Domenica procedure 5. Left shoulder arthroscopic debridement labral tear Implants: 4Arthrex 4.75 swivel lock anchors 1Arthrex 5.5 swivel lock anchor Anesthesia: GETA, regional (Interscalene block) Surgeon: Jamshid Marcial Occupational Safety Specialist #1: Vivek Zhu Estimated Blood Loss (ml): 10 Pathology: none sent Condition: stable Disposition: PACU Indications for Procedure: 68-year-old gentleman seen with progressive left shoulder pain. After having treatment options discussed, he elected to proceed with arthroscopy. Operative Findings: See description of procedure Description of Procedure: Patient underwent an interscalene block by department of anesthesia. The patient was then taken to the operative suite. The patient underwent a general anesthetic by the department of anesthesia. The patient was placed into a lateral position and secured. There was appropriate padding of the bony prominence. Left shoulder was then prepped and draped in normal sterile orthopedic fashion. We placed the extremity in 10 pounds of longitudinal traction. A posterior incision was now made for a posterior working portal site. The trocar and cannula were inserted into the glenohumeral joint. Arthroscopy was initiated. Spinal needle was now inserted anteriorly, to ascertain the anterior working portal site. An incision was now made in that area, a trocar was inserted followed by a probe. There was superficial tearing of the superior labrum. There was hyperemia and partial tearing long head biceps tendon. There was grade I chondromalacia of the glenoid fossa. I debrided the superficial labral tear getting down to stable labral tissue. I decided to proceed with arthroscopic biceps tenodesis. I placed a cannula through the anterior portal site. I passed a loop and tack type stitch to the biceps tendon and then release it from the superior labral anchor. With the assistance of Nicolas RONQUILLO I punched a hole at the interval for insertion of an anchor. The suture limb was passed through the eyelet of an Arthrex 4.75 swivel lock anchor. The eyelet was placed into the preplanned hole. I held that in position while Nicolas RONQUILLO tensioned the suture and deployed the anchor with good fixation noted. The residual suture limb was clipped. We had a stable appearing biceps tenodesis. Instruments were now removed from the glenohumeral joint. Utilizing the posterior working portal site, the trocar and cannula were inserted into the subacromial space. Arthroscopy initiated. I made an incision 2 fingerbreadths lateral to the acromion. I introduced my trocar followed by my ArthroCare ablator. I now began ablating thick subacromial bursal tissue, which exposed the undersurface of the anterior acromion. There was diminished subacromial space. There was a very prominent anterior acromion. A motorized bur was introduced and a subacromial decompression was performed. I also excised some osteophytes off the inferior aspect of the distal clavicle. The AC joint was visualized and noted to be fairly arthritic. The motorized bur was introduced in the anterior portal site and a Domenica procedure was performed without difficulty removing 8 mm of bone off the distal clavicle, decompressing the AC joint nicely. I turned my attention to the rotator cuff. There was a 2.5 cm rotator cuff tear. I debrided the margins getting down to stable tendon tissue. I introduced my motorized bur and abraded the footprint area, getting some petechial bleeding. I now made an accessory portal site off the lateral aspect of the acromion. I punched to holes medial for medial row fixation with the assistance of Nicolas RONQUILLO carefully tapping the punch with a mallet as I held the punch and the camera. I now introduced both anchors into the pre- punched holes and Nicolas RONQUILLO tapped them with the mallet as I held anchors and the camera. Nicolas RONQUILLO now screwed the anchors in place a while I held the anchor guide and camera. All 8 limbs of suture were now passed through good bites of rotator cuff tendon. I now punched 2 holes for lateral row fixation again I held the punch and camera while Nicolas RONQUILLO used a mallet to tap in the punch. We now passed sutures through both anchors and individually I introduced the anchors into the pre-punch holes I held the anchor guide in position with one hand holding the camera with the other hand while Nicolas RONQUILLO tensioned the sutures and screwed in the anchors one at a time. All residual suture limbs were now clipped. We had good compression of the tendon along the entire footprint. Instruments now removed from the portal sites. All portal sites were approximated with nylon suture. Sterile dressings were applied followed by a shoulder immobilizer. Vivek RONQUILLO assisted in this complex case. The patient was awakened, transferred to a bed, and taken to recovery in stable condition.
[2023-11-01 09:34] VITALS: TEMP 97
[2023-11-01 10:27] VITALS: RESP 18
[2023-11-01 11:02] VITALS: PULSE 62
[2023-11-01 11:04] VITALS: BP 150/62
== END 2023-11-01 11:17 | disposition home or self-care (01) ==
LOC: OR 05:42
PROVIDERS: ATTEND Orthopaedic Surgery
DX: M75.102 Unspecified rotator cuff tear or rupture of left shoulder, not specified as traumatic (principal); M19.012 Primary osteoarthritis, left shoulder; K21.9 Gastro-esophageal reflux disease without esophagitis; I10 Essential (primary) hypertension; G89.18 Other acute postprocedural pain; E78.5 Hyperlipidemia, unspecified; M75.22 Bicipital tendinitis, left shoulder; M75.42 Impingement syndrome of left shoulder; F17.210 Nicotine dependence, cigarettes, uncomplicated; Z88.0 Allergy status to penicillin; Z79.899 Other long term (current) drug therapy
CPT/HCPCS: 64415; 29824; 29826; 29827; 29828; C1713 ×3; J2250; J0330; J1100; J2710; J0690; J2405; J2001; J3010; J2795; J2704; J1596

== ENCOUNTER → 2023-12-18 | Outpatient (CLI) | payer OTHER ==
--- NOTE | 2023-12-18 20:21 | CTL ---
EXAMINATION TYPE: CT Low Dose Lung DATE OF EXAM: 12/18/2023 3:44 PM CLINICAL INDICATION: Male, 68 years old with history of Z12.2 LUNG CA SCR F17.210 NICOTINE DEPENDENT; Nicotine dependency of 1ppd x50 years. Current smoker. Unable to raise left arm above head due to sh oulder injury. history of tobacco use. COMPARISON: None. TECHNIQUE: Multiple axial non-contrast scans were obtained from approximately the lung apices through the upper abdomen. Coronal and sagittal reformatted images were obtained. Low dose technique was uti lized. CT DLP: 93.50 mGycm, Automated exposure control for dose reduction was used. CT Contrast: Contrast used: None Oral contrast used: None FINDINGS: ======== Lack of intravenous contrast and low dose technique limits the evaluation of the vascular and soft ti ssue structures. LUNGS: No evidence of pulmonary fibrosis. No evidence of focal consolidation, pneumothorax or pleural effusion. Centrilobular emphysema changes. Consolidation changes in the lingula medially superimpose d on COPD. Nodules: RUL: Intrafissural lymph node RML: None. RLL: Intrafissural lymph node series 3 image 172 DUNG: None. LLL: None. AIRWAY: Mild bronchial wall thickening HEART: Size within normal limits. MEDIASTINUM: No gross evidence of adenopathy. VASCULATURE: No aortic aneurysm. MUSCULOSKELETAL: No acute osseous abnormalities SOFT TISSUES/LYMPH NODES: Unremarkable. LOWER NECK: No significant findings. UPPER ABDOMEN: No significant findings. IMPRESSION: 1. No clinically significant pulmonary nodules. 2. Moderate emphysema and COPD change. 3. Possible airspace consolidation superimposed on emphysema in the right middle lobe. CT LUNG RAD AND CT CHEST RECOMMENDATION: Lung-Rad 1 Negative: Continue annual screening with LDCT in 12 months. S Modifier (other clinically significant findings): None Recommend smoking cessation (if current smoker), or continuation of smoking cessation (if prior smoke r). Annual screening for lung cancer with low-dose computed tomography is recommended in adults ages 55 to 77 years who have a 30 pack-year smoking history and currently smoke or have quit within the pa st 15 years. Screening should be discontinued once a person has not smoked for 15 years or develops a health problem that substantially limits life expectancy or the ability or willingness to have curat charles lung surgery. Lung rads 2021 [email or web address]
== END | disposition home or self-care (01) ==
LOC: RADCTMAIN 14:54
PROVIDERS: ATTEND Internal Medicine Pulmonary Disease
DX: Z12.2 Encounter for screening for malignant neoplasm of respiratory organs (principal); J43.2 Centrilobular emphysema; F17.210 Nicotine dependence, cigarettes, uncomplicated
CPT/HCPCS: 71271